=== PATIENT | male | born 1975 | race Caucasian/White ===

== ENCOUNTER 2017-02-03 23:19 | Emergency (ER) | payer BC ==
[~2017-02-03] VITALS: Ht 185.4 cm; Wt 163.3 kg
[~2017-02-03 23:19] MED LIST: CIPRO500 MG PO; PARAFON FORTE500 MG PO; PERCOCET 325 MG1 TA5 PO; PERCOCET 650 MG1 TA1 PO; PHENERGAN W/ DE30 ML PO; PREDNICOT10 MG PO; PRILOSEC20 M1 PO
[2017-02-04 00:24] LABS: BILIRUBIN NEGATIVE (NEGATIVE); BLOOD 2+ (NEGATIVE); CLARITY CLEAR (CLEAR); COLOR YELLOW (YELLOW); GLUCOSE NEGATIVE (NEGATIVE); KETONE NEGATIVE (NEGATIVE); LEUKO ESTERASE NEGATIVE (NEGATIVE); NITRITE NEGATIVE (NEGATIVE); PROTEIN NEGATIVE (NEGATIVE); UROBILINOGEN 0.2 E.U./dl (0.2-1.0)
[2017-02-04 00:25] LABS: BASO # 0.1 10*3/uL (0.0-0.1); BASO % 0.9 % (0.0-1.0); EOS # 0.3 10*3/uL (0.0-0.4); EOS % 2.3 % (1.0-4.0); HEMATOCRIT 45.5 % (42.0-52.0); HEMOGLOBIN 15.5 g/dl (14.0-18.0); IG # 0.1 10*3/uL (0.0-0.1); LYMPH # 3.8 10*3/uL (1.3-4.4); LYMPH % 31.3 % (27.0-41.0); MEAN CELL VOLUME 90.1 fl (80.0-94.0); MEAN CORPUSCULAR HGB 30.7 pg (27.0-31.0); MEAN CORPUSCULAR HGB CONC 34.1 g/dl (33.0-37.0); MEAN PLATELET VOLUME 9.6 fl (9.6-12.3); MONO # 0.8 10*3/uL (0.1-1.0); MONO % 6.7 % (3.0-9.0); NEUT # 7.1 10*3/uL (2.3-7.9); NEUT % 58.3 % (47.0-73.0); PLATELET COUNT AUTOMATED 330 10*3/uL (130-400); RED BLOOD COUNT 5.05 10*6/uL (4.50-5.90); RED CELL DISTRI WIDTH 12.2 % (0-14.5); WHITE BLOOD COUNT 12.2 10*3/uL (4.8-10.8)
[2017-02-04 00:27] LABS: BUN 12 mg/dl (7-24); CARBON DIOXIDE 29 mmol/L (21-32); CHLORIDE 103 mmol/L (98-107); EST GLOM FILT AFRICAN AMERICAN > 60 ml/min; GLUCOSE 154 mg/dL (65-99); POTASSIUM 4.2 mmol/L (3.5-5.1); SODIUM 141 mmol/L (136-145)
[2017-02-04 00:32] LABS: URINE REFLEX COMMENT YES (NO)
[2017-02-04] MEDS ORDERED: NORCO 5-325 TA1 EACH PO (02:30)
[2017-02-04] MEDS ORDERED: ZOFRAN ODT4 MG SL (02:30)
== END 2017-02-04 02:40 | disposition home or self-care (01) ==
LOC: ED 23:19
PROVIDERS: Emergency Medicine Emergency Medical Services
DX: N23 Unspecified renal colic (principal); N20.1 Calculus of ureter; Z87.442 Personal history of urinary calculi; Z79.899 Other long term (current) drug therapy

== ENCOUNTER 2018-07-03 13:13 | Inpatient (IN) | payer BC ==
[~2018-07-03] VITALS: Ht 185.4 cm; Wt 168.1 kg
--- NOTE | ~2018-07-03 | PR ---
[place], [place] PROGRESS NOTE NAME: NIEVES PAUL UNIT #: [id number] ROOM: 526 DOCTOR: MIHAI LAZCANO MD,MEGHA BIRTHDATE: [birth year] DOS: 07/06/2018 SUBJECTIVE: The patient was noted comfortable at this time, resting on the bed. Coughing which was initially reported dry and nonproductive. There were no other acute respiratory complaints. OBJECTIVE: VITAL SIGNS: Normal temperature, respiratory rate 20, heart rate 83, blood pressure 132/68, pulse oxygen saturation on room air 95% saturation. HEAD, EYES, EARS, NOSE, AND THROAT: No acute change. NECK: Supple. CARDIOVASCULAR SYSTEM: S1, S2 audible. LUNGS: Remains clear. ABDOMEN: Soft and obese. EXTREMITIES: Without acute edema. LABORATORY DATA: CBC this morning: WBC count 17.3. Remaining CBC was normal. Lactic acid 1.1. IMPRESSION: 1. Acute viral infection, bronchitis. There was no evidence of pneumonia. 2. Chronic severe obesity as well. PLAN OF TREATMENT: No changes from the pulmonary standpoint. Discharge planning per Dr. Temitope Riggins. Other supportive plan of management. The patient could be discharged from the pulmonary standpoint on antibiotic treatment for completion of the influenza infection. MEGHA HOLM MD CM:PNTRANS [id number] MEGHA LAZCANO MD 07/12/18 0957 interface
--- NOTE | ~2018-07-03 | DS ---
[place], [place] DISCHARGE SUMMARY NAME: NIEVES PAUL UNIT #: [id number] ROOM: 526 DOCTOR: SHIN GRAFF MD BIRTHDATE: [birth year] DOS: 07/06/2018 DIAGNOSES: 1. Influenza pneumonia. 2. Acute tracheobronchitis. 3. Lactic acidosis with sepsis ruled out. 4. Elevated white cell count, slowly trending down. 5. Hyperglycemia with hemoglobin A1c of 6.9. Needs treatment as an outpatient. 6. Morbid obesity with a body mass index of 50. Needs sleep study and possibly placed on CPAP. 7. Benign hypertension with concentric left ventricular hypertrophy. HOSPITAL COURSE: This patient is 42 years old comes in with complaints of cough and shortness of breath. Please refer to H and P for details. After admission, the patient was placed on IV fluids, Tamiflu, IV antibiotics. A CT of the chest was done, did not show any pneumonia. The chest x-ray initially had shown right lower lobe pneumonia. The patient's white cell count was 21,000, is slowly trending down to 17,000 this morning. His lactic acidosis is corrected. He is not having any fevers, cough and shortness of breath slowly improved. Dr. Mar was consulted. He agreed the patient is stable and can be discharged today. He does have hyperglycemia with a hemoglobin A1c of 6.9, so he is a new onset diabetic, needs to be followed up as an outpatient to start on medications. Echocardiogram was done, which showed normal LV function with mild concentric LVH. The patient is morbidly obese and would require a sleep study and possible CPAP as an outpatient. The patient is advised to stay off from work for this week and see Dr. Cabral on Thursday and get an okay to go back to work. SHIN GRAFF MD CM:DISCHARG 4 4 SHIN GRAFF MD 07/06/18922 interface
--- NOTE | ~2018-07-03 | PR ---
[place], [place] PROGRESS NOTE NAME: NIEVES PAUL UNIT #: [id number] ROOM: 526 DOCTOR: SHIN GRAFF MD BIRTHDATE: [birth year] DOS: 07/05/2018 SUBJECTIVE: The patient states that he is starting to feel a little bit better, does not have any new complaints. OBJECTIVE: VITAL SIGNS: Graphic trend shows blood pressure 152/72, pulse of 73, respirations 22, temperature 97.4. LUNGS: Diminished breath sounds, clear. More air entry noted today. HEART: Regular. ABDOMEN: Obese, soft. EXTREMITIES: Without any edema. CT of the chest did not show pneumonia, but showed coronary calcifications. Comprehensive noted to be elevated at 192 blood sugar. White cell count is still high at 18.5. ASSESSMENT AND PLAN: 1. Influenza B, on Tamiflu. 2. Elevated white cell count with lactic acidosis with sepsis pattern. Sputum and blood cultures were ordered. I do not have the results of any of those back. We will continue Levaquin IV until the white cell count normalizes. If it comes down further, the plan is to discharge him to home tomorrow. 3. Coronary calcification. Check echocardiogram. The patient continues to be on lisinopril. Also, blood sugar was elevated. We will check a hemoglobin A1c. SHIN GRAFF MD CM:PNTRANS [id number] SHIN GRAFF MD 07/05/18 1420 interface
--- NOTE | ~2018-07-03 | PR ---
[place], [place] PROGRESS NOTE NAME: NIEVES PAUL UNIT #: [id number] ROOM: 526 DOCTOR: MIHAI LAZCANO MD,MEGHA BIRTHDATE: [birth year] DOS: 07/05/2018 SUBJECTIVE: The patient noted comfortable at this time without any acute distress this morning, resting in the bed. Has not been noted any symptoms of fever or chills. Cough has been noted [id number] nonproductive. There were symptoms of wheezing reported. OBJECTIVE: VITAL SIGNS: The patient has normal temperature, respiratory rate 22, heart rate 100, blood pressure 124/64. Pulse oxygen saturation on room air was 96% saturation. HEENT: Chronic obesity. NECK: Supple and obese. CARDIOVASCULAR: S1, S2 audible. LUNGS: Clear to auscultation bilaterally. ABDOMEN: Soft, obese, and nontender. EXTREMITIES: No acute edema. LABORATORY DATA: CBC today: WBC count was 18.5, decreased from 21,000. Hemoglobin and hematocrit and remaining CBC normal. CMP normal except glucose of 132. IMPRESSION: Resolving acute bronchitis with influenza B infection for this patient at this time. The patient with chronic obesity. PLAN OF MANAGEMENT: No change in Pulmonary standpoint. Discharge planning per primary care attending. Continue in the meantime other therapy, plan of management, care plan and treatment and therapies. MEGHA HOLM MD CM:PNTRANS [id number] MEGHA LAZCANO MD 07/05/18 1228 interface
--- NOTE | ~2018-07-03 | CON ---
[place], [place] REPORT OF CONSULTATION NAME: NIEVES PAUL UNIT #: [id number] ROOM: 526 DOCTOR: MIHAI LAZCANO MDMEGHA BIRTHDATE: [birth year] DOS: 07/04/2018 PULMONARY CONSULTATION, EVALUATION, AND MANAGEMENT CONSULTATION REQUESTED BY: Temitope Riggins MD REASON FOR CONSULTATION: For assessment of possibility of pneumonia. The patient with hemoptysis. HISTORY OF PRESENT ILLNESS: The patient is a 42-year-old white male patient without any known pulmonary disease or other significant illnesses. The patient presented to the hospital as he reported expectoration of blood, might be drainage from the back of the throat. He also felt dizzy and reported symptoms of cough, which has been ongoing for the past several weeks. The patient's cough has been noted usually nonproductive. Denies symptoms of fever or chills. Denies symptoms of hemoptysis. He has been seen in the hospital in the Emergency Room with current symptom assessment on 07/03/2018 and was admitted to the hospital for further care. The patient reported symptoms of shortness of breath with exertion as well. REVIEW OF SYSTEMS: CONSTITUTIONAL: Fatigue and tiredness noted. Denies any symptoms of fever or chills. EYES: Denies any burning, redness, or tenderness. EARS, NOSE, THROAT SYMPTOMS: Denies sore throat, hoarseness, otalgia, postnasal drainage at the present time. There was no further bleeding was reported including any episodes of hemoptysis. CARDIOVASCULAR: Denies anginal pain, edema, or pain of the lower extremities. GASTROINTESTINAL: Denies dysphagia, nausea, vomiting, diarrhea, abdominal pain, hematemesis, melena, or hematochezia. SKIN: Denies abnormal lesions or rashes. CENTRAL NERVOUS SYSTEM: No dizziness, headache, diplopia, syncope or seizures. GENITOURINARY: Denies dysuria, suprapubic pain, or hematuria. Remaining systems were reviewed. They were noted all negative. PAST MEDICAL HISTORY: 1. Known with history of nephrolithiasis. The patient required intervention couple of times in the past. 2. Gastroesophageal reflux 3. Morbid obesity. 4. Chronic back pain. 5. History of essential hypertension. PAST SURGICAL HISTORY: The patient was noted with: 1. ____ x 2 in the past. 2. Cardiac catheterization. SOCIAL HISTORY: The patient is , has 3 children, lives at home. Denies ETOH, alcohol, or illicit drug use. Tobacco use was noted in the form of cigarette from a teenager, pack of cigarettes a day, discontinued about 15 years [place], [place] REPORT OF CONSULTATION NAME: NIEVES PAUL UNIT #: [id number] ROOM: 526 DOCTOR: MIHAI LAZCANO MD,MEGHA BIRTHDATE: [birth year] ago. Currently, the patient is chewing tobacco and uses about 13 cans of tobacco per week. FAMILY HISTORY: Both parents are living, father 63 with history of coronary artery disease, other medical illnesses. Mother is living, also 61 years old with a history of coronary artery disease and several other medical illnesses. MEDICATIONS: At home were listed hydrochlorothiazide with lisinopril, omeprazole, and Flexeril. DRUG ALLERGIES: No known drug allergies. PHYSICAL EXAMINATION: GENERAL: This is a 42-year-old white male, currently resting comfortably on the bed. Height recorded on admission as 6 feet 1 inch, weight of 370 pounds, BMI 48. VITAL SIGNS: For the patient which are reviewed shows a temperature normal since admission, respiratory rate range between 19-24, heart rate of 115-105. The blood pressure 136/86-129/64. Pulse oxygen saturation at rest on room air was recorded as 95%. HEENT: Severe decreased posterior pharyngeal space. Head was atraumatic. Eyes nonicterus. NECK: Supple. CARDIOVASCULAR: S1, S2 is audible. LUNGS: Noted with mild decreased breath sounds in the lungs bilaterally. There was no wheezing or crackles at the present time. ABDOMEN: Soft and nontender. Bowel sounds are present. EXTREMITIES: Noted without any acute edema, clubbing or cyanosis. MUSCULOSKELETAL: Noted without any acute deformities. Cranial nerves 2-12 are intact. LABORATORY DATA: CBC that was done yesterday, WBC count 16.8, remaining CBC was normal. The PT, PTT yesterday was noted as normal. Influenza A and B, nasal washing antigens taken in the Emergency Room, noted with influenza B positive. BMP: Glucose 126. Normal BUN and creatinine. Lactic acid 2.6, follow variably elevated. CBC of this morning, WBC count 21.7, hemoglobin and hematocrit normal, platelet count normal. BMP this morning was noted as BUN 14, creatinine was normal, glucose 130. Glucose 136. Sodium 135. The chest x-ray, two-view, which was done in the Emergency Room was reviewed with patchy area of infiltration, atelectasis in the right lower lobe. The CT scan of the chest, which was done without contrast was reviewed does not show any acute pulmonary infiltration, possibility of coronary artery disease and the moderate fatty deposition in the liver reported. IMPRESSION: 1. The patient will be going to be admitted to the hospital with acute bronchitis with acute ____ influenza B infection. There was no evidence of acute pneumonia at the present time. 2. Morbid obesity. 3. Leukocytosis was also noted at this time, etiology unclear. [place], [place] REPORT OF CONSULTATION NAME: NIEVES PAUL UNIT #: [id number] ROOM: 526 DOCTOR: MIHAI LAZCANO MD,MEGHA BIRTHDATE: [birth year] 4. The patient with acute hemoptysis, most likely pseudohemoptysis with drainage at the back of the throat. 5. Chronic dependence on ____. Currently with the chewing tobacco, previously noted with tobacco use. PLAN OF MANAGEMENT: Discontinuation of antibiotics. Continue management of the influenza B infection with antiviral treatment was already started by Dr. Temitope Riggins. Continue all other supportive therapy, plan of management. Monitor respiratory status closely for hemoptysis, which could be a pseudohemoptysis at this time, may be from the back of the throat. ENT evaluation would be advised. MEGHA HOLM MD CM:CONSTR:REPORT OF CONSULTATION 1244 07/04/18 1439 interface
--- NOTE | ~2018-07-03 | PR ---
[place], [place] PROGRESS NOTE NAME: NIEVES PAUL UNIT #: [id number] ROOM: 526 DOCTOR: SHIN GRAFF MD BIRTHDATE: [birth year] DOS: SUBJECTIVE: The patient is not having any complaints today. OBJECTIVE: VITAL SIGNS: Graphic trend shows a pressure of 133/68, pulse of 83, respirations 20, temperature 98.3. LUNGS: Clear. HEART: Regular. ABDOMEN: Obese, soft, nontender. EXTREMITIES: Without any edema. LABORATORY DATA: Hemoglobin A1c was 6.9 yesterday. Sugar has come down to 124. White cell count is down to 17.3. ASSESSMENT AND PLAN: 1. Influenza B on Tamiflu. 2. Acute tracheobronchitis with lactic acidosis, possible sepsis, which has corrected. Plan to discharge to home. 3. Morbid obesity with a body mass index of 50. Advised weight loss and possible sleep study as an outpatient. 4. Benign hypertension. Echocardiogram shows left ventricular hypertrophy. 4. Hyperglycemia with hemoglobin A1c of 6.9. Need to consider medications as an outpatient. Follow up with Dr. Cabral on Thursday. He is advised to be off from work until seen by primary care physician. SHIN GRAFF MD CM:JOAQUÍN 2 9 SHIN GRAFF MD 07/06/1829 interface
--- NOTE | ~2018-07-03 | WRIGHTHP ---
[place], [place] PATIENT HISTORY AND PHYSICAL EXAM NAME: NIEVES PAUL [facility] #: [id number] UNIT #: [id number] ROOM: 526 DOCTOR: SHIN GRAFF MD BIRTHDATE: [birth year] DOS: 07/03/2018 HISTORY OF PRESENT ILLNESS: The patient is 42-year-old. The patient is not known to me. A patient of Dr. Cabral, comes in with complaints of cough and difficulty breathing. He states he was sick about a month ago. He got some antibiotics, did not get any better. It continued to progress. He denies having any chest pains or palpitations. Finally, he decided to come into the Emergency Room where he was diagnosed with flu B and pneumonia and was admitted. The patient does not have any complaints this morning. He denies having any chest pains or palpitations. PAST MEDICAL HISTORY: Significant for: 1. Morbid obesity with a BMI of 48.8. 2. Chronic back pain. 3. Gastroesophageal reflux disease. 4. History of kidney stones. 5. History of cardiac catheterization in 2010, which showed normal coronaries. 6. Benign hypertension. MEDICATIONS: Lisinopril/hydrochlorothiazide 20/12.5 mg daily, omeprazole 40 daily, cyclobenzaprine 10 t.i.d.. SOCIAL HISTORY: Nonsmoker, does not use any alcohol. 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 PHYSICAL EXAMINATION: GENERAL: He is a rather heavy gentleman. VITAL SIGNS: Graphic trend shows blood pressure of 129/64, pulse of 107, respirations 18, temperature 98.1. LUNGS: Diminished breath sounds, very poor air entry. HEART: Regular. ABDOMEN: Obese, soft, nontender. EXTREMITIES: Without any edema. LABORATORY DATA: White cell count on admission 16.8, hemoglobin and hematocrit were normal. Strep screen negative. Protime normal. Rapid flu is positive. Comprehensive: Glucose 126, BUN 15, creatinine 1.16, sodium 141, potassium 3.6, chloride 103, bicarbonate 30. Lactic acid was 2.4. Chest x-ray shows right lower lobe infiltrate. ASSESSMENT: 1. Influenza positive. Tamiflu was started. 2. Right lower lobe pneumonia. Levaquin for Staph coverage along with Rocephin. The patient is also ordered a CT of the chest because of the continued elevation in white cell count. Consultation with Dr. Mar has also been obtained. IV fluids were added. 3. Benign hypertension, controlled. Restart his lisinopril. [place], [place] PATIENT HISTORY AND PHYSICAL EXAM NAME: NIEVES PAUL UNIT #: [id number] ROOM: 526 DOCTOR: SHIN GRAFF MD BIRTHDATE: [birth year] SHIN GRAFF MD CM:HISPHYS:PATIENT HISTORY AND PHYSICAL EXAMINATION 3 3 SHIN GRAFF MD 07/04/18923 interface
[~2018-07-03 13:13] MED LIST changes: +NORCO 5-325 TA1 EACH PO; +ZOFRAN ODT4 MG SL
[2018-07-03 13:15] VITALS: BP 140/90
[2018-07-03 13:36] LABS: BASO # 0.1 10*3/uL (0.0-0.1); BASO % 0.8 % (0.0-1.0); EOS # 0.3 10*3/uL (0.0-0.4); EOS % 1.9 % (1.0-4.0); HEMATOCRIT 48.7 % (42.0-52.0); HEMOGLOBIN 16.1 g/dl (14.0-18.0); LYMPH % 23.7 % (27.0-41.0); MEAN CELL VOLUME 91.9 fl (80.0-94.0); MEAN CORPUSCULAR HGB 30.4 pg (27.0-31.0); MEAN CORPUSCULAR HGB CONC 33.1 g/dl (33.0-37.0); MEAN PLATELET VOLUME 9.4 fl (9.6-12.3); MONO # 1.2 10*3/uL (0.1-1.0); MONO % 6.9 % (3.0-9.0); NEUT # 11.1 10*3/uL (2.3-7.9); NEUT % 66.1 % (47.0-73.0); PLATELET COUNT AUTOMATED 323 10*3/uL (130-400); RED CELL DISTRI WIDTH 12.4 % (0-14.5); WHITE BLOOD COUNT 16.8 10*3/uL (4.8-10.8)
[2018-07-03 13:47] LABS: ACT PARTIAL THROMBO TIME 22.4 SECONDS (20.8-31.5); INTERNATIONAL NORM RATIO 0.9 (2.0-3.5)
[2018-07-03 13:52] LABS: ALBUMIN 3.6 gm/dl (3.1-4.5); ALKALINE PHOSPHATASE 71 U/L (45-117); BUN 15 mg/dl (7-24); CHLORIDE 103 mmol/L (98-107); CREATININE 1.16 mg/dL (0.70-1.30); POTASSIUM 3.6 mmol/L (3.5-5.1); SGOT/AST 26 IU/L (3-35); SGPT/ALT 51 U/L (12-78); SODIUM 141 mmol/L (136-145); TOTAL PROTEIN 7.7 gm/dL (6.4-8.2)
[2018-07-03 15:27] VITALS: BP 142/91
[2018-07-03] MEDS ORDERED: OMEPRAZOLE40 MG PO (15:46)
[2018-07-03] MEDS ORDERED: ZESTORETIC 20-1 EACH PO (15:47)
[2018-07-03] MEDS ORDERED: AUGMENTIN 875875 MG PO (15:47)
[2018-07-03 16:05] VITALS: BP 134/83
[2018-07-03] MEDS ORDERED: CYCLOBENZAPRINE10 MG PO (16:20)
[2018-07-03] MEDS ORDERED: HYDR12.5C PO (16:42)
[2018-07-03 20:00] VITALS: BP 131/78
[2018-07-04] VITALS: BP 129/64
[2018-07-04 06:37] LABS: HEMATOCRIT 47.7 % (42.0-52.0); HEMOGLOBIN 15.3 g/dl (14.0-18.0); MEAN CELL VOLUME 93.5 fl (80.0-94.0); MEAN CORPUSCULAR HGB CONC 32.1 g/dl (33.0-37.0); MEAN PLATELET VOLUME 9.7 fl (9.6-12.3); PLATELET COUNT AUTOMATED 334 10*3/uL (130-400); RED CELL DISTRI WIDTH 12.3 % (0-14.5); WHITE BLOOD COUNT 21.7 10*3/uL (4.8-10.8)
[2018-07-04 07:19] LABS: PLATELET SUFFICIENCY NORMAL (NORMAL); TOTAL CELLS COUNTED 100 #CELLS
[2018-07-04 07:22] LABS: CHLORIDE 99 mmol/L (98-107); SODIUM 135 mmol/L (136-145)
[2018-07-04 07:29] LABS: BUN 14 mg/dl (7-24); CREATININE 1.06 mg/dL (0.70-1.30)
[2018-07-04 08:00] VITALS: BP 136/86
[2018-07-04 12:00] VITALS: BP 98/73
[2018-07-04 16:00] VITALS: BP 126/68
[2018-07-04 20:00] VITALS: BP 126/59
[2018-07-05] VITALS: BP 152/72
[2018-07-05 06:36] LABS: BASO # 0.1 10*3/uL (0.0-0.1); BASO % 0.5 % (0.0-1.0); EOS # 0.2 10*3/uL (0.0-0.4); EOS % 0.9 % (1.0-4.0); HEMATOCRIT 46.9 % (42.0-52.0); HEMOGLOBIN 15.2 g/dl (14.0-18.0); LYMPH # 3.1 10*3/uL (1.3-4.4); LYMPH % 16.9 % (27.0-41.0); MEAN CELL VOLUME 94.2 fl (80.0-94.0); MEAN CORPUSCULAR HGB 30.5 pg (27.0-31.0); MEAN CORPUSCULAR HGB CONC 32.4 g/dl (33.0-37.0); MEAN PLATELET VOLUME 9.5 fl (9.6-12.3); MONO # 1.2 10*3/uL (0.1-1.0); MONO % 6.5 % (3.0-9.0); NEUT # 13.7 10*3/uL (2.3-7.9); PLATELET COUNT AUTOMATED 312 10*3/uL (130-400); RED BLOOD COUNT 4.98 10*6/uL (4.50-5.90); RED CELL DISTRI WIDTH 12.8 % (0-14.5); WHITE BLOOD COUNT 18.5 10*3/uL (4.8-10.8)
[2018-07-05 07:00] LABS: ALBUMIN 3.1 gm/dl (3.1-4.5); ALKALINE PHOSPHATASE 64 U/L (45-117); BUN 14 mg/dl (7-24); CHLORIDE 105 mmol/L (98-107); CREATININE 0.91 mg/dL (0.70-1.30); POTASSIUM 4.3 mmol/L (3.5-5.1); SGOT/AST 19 IU/L (3-35); SGPT/ALT 40 U/L (12-78); SODIUM 139 mmol/L (136-145); TOTAL PROTEIN 6.7 gm/dL (6.4-8.2)
[2018-07-05 08:00] VITALS: BP 124/64
[2018-07-05 16:00] VITALS: BP 136/93
[2018-07-05 20:00] VITALS: BP 129/78
[2018-07-06] VITALS: BP 133/68
[2018-07-06 05:57] LABS: BASO # 0.1 10*3/uL (0.0-0.1); BASO % 0.7 % (0.0-1.0); EOS # 0.4 10*3/uL (0.0-0.4); HEMATOCRIT 46.7 % (42.0-52.0); HEMOGLOBIN 15.5 g/dl (14.0-18.0); LYMPH # 3.1 10*3/uL (1.3-4.4); LYMPH % 18.1 % (27.0-41.0); MEAN CELL VOLUME 92.7 fl (80.0-94.0); MEAN CORPUSCULAR HGB 30.8 pg (27.0-31.0); MEAN CORPUSCULAR HGB CONC 33.2 g/dl (33.0-37.0); MEAN PLATELET VOLUME 9.2 fl (9.6-12.3); MONO % 5.6 % (3.0-9.0); NEUT # 12.4 10*3/uL (2.3-7.9); PLATELET COUNT AUTOMATED 308 10*3/uL (130-400); RED BLOOD COUNT 5.04 10*6/uL (4.50-5.90); RED CELL DISTRI WIDTH 12.6 % (0-14.5); WHITE BLOOD COUNT 17.3 10*3/uL (4.8-10.8)
[2018-07-06 06:13] LABS: BUN 11 mg/dl (7-24); CHLORIDE 101 mmol/L (98-107); CREATININE 0.79 mg/dL (0.70-1.30); POTASSIUM 4.4 mmol/L (3.5-5.1); SODIUM 137 mmol/L (136-145)
[2018-07-06] MEDS ORDERED: TAMIFLU 75MG CA75 MG PO (08:49)
[2018-07-06] MEDS ORDERED: CIPRO500 MG PO (08:49)
[2018-07-06] MEDS ORDERED: PREDNISONE5 MG PO (08:49)
== END 2018-07-06 09:43 | disposition home or self-care (01) | DRG 202 ==
LOC: ED 13:13 → 5E 15:05 → EDHOLD 15:05 → 5E 15:29
PROVIDERS: Internal Medicine; Nurse Practitioner Family
DX: J20.8 Acute bronchitis due to other specified organisms (principal); E87.2 Acidosis; Z68.43 Body mass index [BMI] 50.0-59.9, adult; R04.2 Hemoptysis; E11.65 Type 2 diabetes mellitus with hyperglycemia; J10.1 Influenza due to other identified influenza virus with other respiratory manifestations; K21.9 Gastro-esophageal reflux disease without esophagitis; F17.220 Nicotine dependence, chewing tobacco, uncomplicated; M54.9 Dorsalgia, unspecified; G89.29 Other chronic pain; I25.10 Atherosclerotic heart disease of native coronary artery without angina pectoris; E66.01 Morbid (severe) obesity due to excess calories; I11.9 Hypertensive heart disease without heart failure; Z87.442 Personal history of urinary calculi; Z82.49 Family history of ischemic heart disease and other diseases of the circulatory system; Z80.9 Family history of malignant neoplasm, unspecified

== ENCOUNTER 2019-06-25 10:03 | Emergency (ER) | payer BC ==
[~2019-06-25] VITALS: Ht 185.4 cm; Wt 176.9 kg
[~2019-06-25 10:03] MED LIST changes: +ASPIRIN ADULT L81 M1 PO; +AUGMENTIN 875875 MG PO; +CYCLOBENZAPRINE10 MG PO; +HYDR12.5C PO; +OMEPRAZOLE40 MG PO; +PREDNISONE5 MG PO; +TAMIFLU 75MG CA75 MG PO; +ZESTORETIC 20-1 EACH PO
[2019-06-25] MEDS ORDERED: MEDROL DOSEPAK4 MG PO (10:42)
[2019-06-25] MEDS ORDERED: METHOCARBAMOL500 M1 PO (10:42)
[2019-06-25] MEDS ORDERED: NAPROSYN500 MG PO (10:42)
== END 2019-06-25 10:55 | disposition home or self-care (01) ==
LOC: ED 10:03
DX: S39.012A Strain of muscle, fascia and tendon of lower back, initial encounter (principal); K21.9 Gastro-esophageal reflux disease without esophagitis; Z79.899 Other long term (current) drug therapy; X58.XXXA Exposure to other specified factors, initial encounter; Y93.89 Activity, other specified; Y92.89 Other specified places as the place of occurrence of the external cause; Y99.8 Other external cause status

== ENCOUNTER 2020-01-16 01:31 | Emergency (ER) | payer BC ==
[~2020-01-16] VITALS: Ht 185.4 cm; Wt 176.9 kg
[~2020-01-16 01:31] MED LIST changes: +MEDROL DOSEPAK4 MG PO; +METHOCARBAMOL500 M1 PO; +NAPROSYN500 MG PO
[2020-01-16 04:56] LABS: BILIRUBIN NEGATIVE (NEGATIVE); BLOOD 1+ (NEGATIVE); CLARITY SL CLOUDY (CLEAR); COLOR YELLOW (YELLOW); GLUCOSE NEGATIVE (NEGATIVE); KETONE NEGATIVE (NEGATIVE); LEUKO ESTERASE NEGATIVE (NEGATIVE); NITRITE NEGATIVE (NEGATIVE); UROBILINOGEN 0.2 E.U./dl (0.2-1.0)
[2020-01-16 04:57] LABS: EPITHELIAL CELLS 16-20
[2020-01-16] MEDS ORDERED: MEDROL DOSEPAK4 MG PO (05:57)
== END 2020-01-16 06:22 | disposition home or self-care (01) ==
LOC: ED 01:31
PROVIDERS: Emergency Medicine
DX: M51.26 Other intervertebral disc displacement, lumbar region (principal); N20.0 Calculus of kidney; K21.9 Gastro-esophageal reflux disease without esophagitis; Z79.899 Other long term (current) drug therapy

== ENCOUNTER 2020-07-26 07:03 | Emergency (ER) | payer BC ==
[~2020-07-26] VITALS: Ht 185.4 cm; Wt 176.9 kg
[2020-07-26] MEDS ORDERED: TESSALON PERLE100 MG PO (08:55)
[2020-07-26] MEDS ORDERED: PROVENTIL HFA6.7 GM INH (08:55)
== END 2020-07-26 09:41 | disposition home or self-care (01) ==
LOC: ED 07:03
DX: U07.1 COVID-19 (principal); Z79.899 Other long term (current) drug therapy

== ENCOUNTER → 2022-11-05 | Outpatient (CLI) | payer BC ==
[~2022-11-05] MED LIST changes: +ADV 500/50 INH; +ASPIRIN ADULT L81 M2 PO; +PREDNISONE10 MG PO; +PREDNISONE20 M1 PO; +PROVENTIL HFA6.7 GM INH; +TESSALON PERLE100 MG PO
== END | disposition home or self-care (01) ==
LOC: CARD 16:01
PROVIDERS: ATTEND Nurse Practitioner Family
DX: I10 Essential (primary) hypertension (principal)

== ENCOUNTER → 2022-12-23 | Outpatient (CLI) | payer BC ==
[2022-12-23 13:12] LABS: BUN 9 mg/dl (9-23); CHLORIDE 100 mmol/L (98-107); POTASSIUM 3.2 mmol/L (3.4-5.1); URIC ACID 8.1 mg/dL (3.7-9.2)
== END | disposition home or self-care (01) ==
LOC: LAB 12:24
PROVIDERS: ATTEND Nurse Practitioner Family
DX: I10 Essential (primary) hypertension (principal); M1A.9XX0 Chronic gout, unspecified, without tophus (tophi)

== ENCOUNTER → 2024-07-19 | Outpatient (CLI) | payer BC ==
[~2024-07-19] MED LIST changes: +ALLOPURINOL300 MG PO; +ATORVASTATIN CA20 M1 PO; +FENOFIBRATE MI134 MG PO; +LISINOPRIL40 MG PO; +METOPROLOL TART50 M1 PO
[2024-07-19 12:23] LABS: BASO # 0.1 10*3/uL (0.0-0.1); BASO % 0.8 % (0.0-1.0); EOS # 0.3 10*3/uL (0.0-0.4); EOS % 2.3 % (1.0-4.0); HEMATOCRIT 47.4 % (42.0-52.0); MEAN CELL VOLUME 89.9 fl (80.0-94.0); MEAN CORPUSCULAR HGB 29.8 pg (27.0-31.0); MEAN CORPUSCULAR HGB CONC 33.1 g/dl (33.0-37.0); MEAN PLATELET VOLUME 9.1 fl (9.6-12.3); NEUT # 9.7 10*3/uL (2.3-7.9); NEUT % 67.5 % (47.0-73.0); PLATELET COUNT AUTOMATED 315 10*3/uL (130-400); RED BLOOD COUNT 5.27 10*6/uL (4.50-5.90); RED CELL DISTRI WIDTH 12.7 % (0-14.5); WHITE BLOOD COUNT 14.3 10*3/uL (4.8-10.8)
[2024-07-19 12:51] LABS: ALKALINE PHOSPHATASE 98 U/L (46-116); BUN 11 mg/dl (9-23); CHLORIDE 101 mmol/L (98-107); CHOLESTEROL 119 mg/dL (<200); LDL CHOLESTEROL 58 mg/dL (9-159); POTASSIUM 3.9 mmol/L (3.4-5.1); SGPT/ALT 35 U/L (5-49); TOTAL PROTEIN 7.3 gm/dL (6.0-8.0); TRIGLYCERIDES 152 mg/dl (<150); URIC ACID 4.7 mg/dL (3.7-9.2)
== END | disposition home or self-care (01) ==
LOC: LAB 12:03
PROVIDERS: ATTEND Nurse Practitioner Family
DX: I10 Essential (primary) hypertension (principal); E11.9 Type 2 diabetes mellitus without complications; M1A.9XX0 Chronic gout, unspecified, without tophus (tophi)

== ENCOUNTER 2024-08-28 08:51 | Inpatient (IN) | payer BC ==
[~2024-08-28] VITALS: Ht 185.4 cm; Wt 186.0 kg
[2024-08-28 09:17] VITALS: BP 142/78
[2024-08-28] MEDS ORDERED: Albuterol Sulfate 2.5 MG/3 ML VIAL NEB ONE (09:30)
[2024-08-28 09:45] LABS: BASO # 0.1 10*3/uL (0.0-0.1); BASO % 0.6 % (0.0-1.0); EOS % 0.3 % (1.0-4.0); HEMATOCRIT 45.6 % (42.0-52.0); MEAN CELL VOLUME 92.9 fl (80.0-94.0); MEAN CORPUSCULAR HGB 29.5 pg (27.0-31.0); MEAN CORPUSCULAR HGB CONC 31.8 g/dl (33.0-37.0); MEAN PLATELET VOLUME 9.4 fl (9.6-12.3); MONO # 1.3 10*3/uL (0.1-1.0); MONO % 12.3 % (3.0-9.0); NEUT # 7.9 10*3/uL (2.3-7.9); NEUT % 74.2 % (47.0-73.0); PLATELET COUNT AUTOMATED 251 10*3/uL (130-400); RED BLOOD COUNT 4.91 10*6/uL (4.50-5.90); RED CELL DISTRI WIDTH 12.9 % (0-14.5); WHITE BLOOD COUNT 10.7 10*3/uL (4.8-10.8)
[2024-08-28 10:04] LABS: BUN 12 mg/dl (9-23); CHLORIDE 97 mmol/L (98-107)
[2024-08-28] MEDS ORDERED: SODIUM CHLORIDE 0.9% 100 ML BAG IV ONE (10:10)
[2024-08-28] MEDS ORDERED: IOHEXOL 350 MG/ML 100 ML VIAL IV ONE (10:10)
[2024-08-28] MEDS ORDERED: ACETAMINOPHEN 325 MG TAB PO ONE (10:15)
[2024-08-28] MEDS ORDERED: Oseltamivir Phosphate 75 MG CAP PO ONE (11:10)
[2024-08-28] MEDS ORDERED: METOPROLOL SUCC50 M1 PO (11:13)
[2024-08-28] MEDS ORDERED: LISINOPRIL40 MG PO (11:13)
[2024-08-28] MEDS ORDERED: LIPITOR20 MG PO (11:13)
[2024-08-28] MEDS ORDERED: FENOFIBRATE130 M1 PO (11:13)
[2024-08-28] MEDS ORDERED: TRULICITY0.75 MG/0. SC (11:14)
[2024-08-28] MEDS ORDERED: GABAPENTIN400 MG PO (11:14)
[2024-08-28] MEDS ORDERED: ASPIRIN81 M1 PO (11:14)
[2024-08-28 14:23] VITALS: BP 144/80
[2024-08-28] MEDS ORDERED: BISACODYL 5 MG TAB PO PRN (14:40)
[2024-08-28] MEDS ORDERED: Acetaminophen/Hydrocodone 5 MG/325 MG TABLET PO PRN (14:40)
[2024-08-28] MEDS ORDERED: TEMAZEPAM 15 MG CAP PO PRN (14:40)
[2024-08-28] MEDS ORDERED: Magnesium Hydroxide 30 ML UDC PO PRN (14:40)
[2024-08-28] MEDS ORDERED: ACETAMINOPHEN 325 MG TAB PO PRN (14:40)
[2024-08-28] MEDS ORDERED: Ondansetron Hydrochloride 4 MG/2 ML VIAL IV PRN (14:40)
[2024-08-28] MEDS ORDERED: Albuterol Sulfate 2.5 MG/3 ML VIAL NEB SCH (15:15)
[2024-08-28] MEDS ORDERED: DEXTROSE 10 % IN WATER 250 ML IV PRN (16:15)
[2024-08-28] MEDS ORDERED: INSULIN LISPRO 1 UNIT/0.01 ML SQ SCH (16:30)
[2024-08-28 16:46] VITALS: BP 115/58
[2024-08-28 19:35] VITALS: BP 112/68
[2024-08-28] MEDS ORDERED: Oseltamivir Phosphate 75 MG CAP PO SCH (22:00)
[2024-08-28] MEDS ORDERED: GABAPENTIN 400 MG CAP PO SCH (22:00)
[2024-08-28] MEDS ORDERED: METOPROLOL SUCCINATE XR 50 MG TAB PO SCH (22:00)
[2024-08-29 00:06] VITALS: BP 136/76
[2024-08-29 00:17] VITALS: BP 135/74
[2024-08-29 06:00] LABS: BUN 12 mg/dl (9-23); CHLORIDE 97 mmol/L (98-107)
[2024-08-29] MEDS ORDERED: Pantoprazole Sodium 40 MG TAB PO SCH (06:00)
[2024-08-29] MEDS ORDERED: OMEPRAZOLE 20 MG CAP PO SCH (06:00)
[2024-08-29 06:38] LABS: BASO # 0.1 10*3/uL (0.0-0.1); BASO % 0.6 % (0.0-1.0); EOS # 0.2 10*3/uL (0.0-0.4); EOS % 1.6 % (1.0-4.0); HEMATOCRIT 45.4 % (42.0-52.0); MEAN CELL VOLUME 95.6 fl (80.0-94.0); MEAN CORPUSCULAR HGB 29.1 pg (27.0-31.0); MEAN CORPUSCULAR HGB CONC 30.4 g/dl (33.0-37.0); MEAN PLATELET VOLUME 9.8 fl (9.6-12.3); MONO # 1.5 10*3/uL (0.1-1.0); MONO % 16.2 % (3.0-9.0); NEUT # 5.9 10*3/uL (2.3-7.9); NEUT % 64.2 % (47.0-73.0); PLATELET COUNT AUTOMATED 236 10*3/uL (130-400); RED BLOOD COUNT 4.75 10*6/uL (4.50-5.90); RED CELL DISTRI WIDTH 13.2 % (0-14.5); WHITE BLOOD COUNT 9.3 10*3/uL (4.8-10.8)
[2024-08-29 07:54] LABS: ABG O2 SATURATION 87.4 % (94.0-98.0); ARTERIAL BLOOD GAS PH 7.405 (7.350-7.450)
[2024-08-29 08:00] VITALS: BP 121/80
[2024-08-29 08:12] LABS: ABG BASE EXCESS 5.1 mmol/L (-2.0-3.0); ARTERIAL BLOOD GAS PO2 51.6 mmHg (83.0-108.0)
[2024-08-29] MEDS ORDERED: ALLOPURINOL 300 MG TAB PO SCH (10:00)
[2024-08-29] MEDS ORDERED: LISINOPRIL 40 MG TAB PO SCH (10:00)
[2024-08-29] MEDS ORDERED: ATORVASTATIN CALCIUM 20 MG TAB PO SCH (10:00)
[2024-08-29] MEDS ORDERED: ASPIRIN ENTERIC COATED 81 MG TAB PO SCH (10:00)
[2024-08-29] MEDS ORDERED: Enoxaparin Sodium 40 MG/0.4 ML SYR SC SCH (10:00)
[2024-08-29 12:00] VITALS: BP 116/70
[2024-08-29] MEDS ORDERED: TAMIFLU 75MG CA75 MG PO (12:13)
== END 2024-08-29 13:47 | disposition home or self-care (01) | DRG 193 ==
LOC: ED 08:51 → EDHOLD 13:23 → 4E 13:23
PROVIDERS: Emergency Medicine; Student in an Organized Health Care Education/Training Program; ADMIT Student in an Organized Health Care Education/Training Program; ATTEND Student in an Organized Health Care Education/Training Program
DX: J10.1 Influenza due to other identified influenza virus with other respiratory manifestations (principal); J96.01 Acute respiratory failure with hypoxia; E66.2 Morbid (severe) obesity with alveolar hypoventilation; Z68.43 Body mass index [BMI] 50.0-59.9, adult; N20.0 Calculus of kidney; E11.65 Type 2 diabetes mellitus with hyperglycemia; I10 Essential (primary) hypertension; E78.49 Other hyperlipidemia; K21.9 Gastro-esophageal reflux disease without esophagitis; M10.9 Gout, unspecified; Z87.891 Personal history of nicotine dependence; Z79.82 Long term (current) use of aspirin; Z79.899 Other long term (current) drug therapy; Z82.49 Family history of ischemic heart disease and other diseases of the circulatory system

== ENCOUNTER 2025-02-02 04:56 | Emergency (ER) | payer BC ==
[~2025-02-02] VITALS: Ht 185.4 cm; Wt 181.4 kg
[~2025-02-02 04:56] MED LIST changes: +ASPIRIN81 M1 PO; +FENOFIBRATE130 M1 PO; +GABAPENTIN400 MG PO; +LIPITOR20 MG PO; +METOPROLOL SUCC50 M1 PO; +TRULICITY0.75 MG/0. SC
[2025-02-02] MEDS ORDERED: SODIUM CHLORIDE 0.9% 1,000 ML IV ONE (05:20)
[2025-02-02] MEDS ORDERED: Ondansetron Hydrochloride 4 MG/2 ML VIAL IV ONE (05:25)
[2025-02-02 05:53] LABS: BASO # 0.1 10*3/uL (0.0-0.1); BASO % 0.9 % (0.0-1.0); EOS # 0.2 10*3/uL (0.0-0.4); EOS % 2.1 % (1.0-4.0); MEAN CELL VOLUME 90.2 fl (80.0-94.0); MEAN CORPUSCULAR HGB 29.7 pg (27.0-31.0); MEAN PLATELET VOLUME 9.7 fl (9.6-12.3); MONO # 0.8 10*3/uL (0.1-1.0); MONO % 7.2 % (3.0-9.0); NEUT # 7.8 10*3/uL (2.3-7.9); NEUT % 68.0 % (47.0-73.0); NUCLEATED RED BLOOD CELL 0.0 % (0.0-0.0); NUCLEATED RED BLOOD CELL 0.0 10*3/uL (0.0-0.0); PLATELET COUNT AUTOMATED 318 10*3/uL (130-400); RED CELL DISTRI WIDTH 13.0 % (0-14.5)
[2025-02-02 06:13] LABS: BUN 13 mg/dl (9-23)
[2025-02-02] MEDS ORDERED: FLOMAX0.4 MG PO (07:59)
[2025-02-02] MEDS ORDERED: SEPTDS PO (07:59)
[2025-02-02] MEDS ORDERED: Ondansetron4 MG PO (07:59)
[2025-02-02] MEDS ORDERED: PERCOCET 5-3251 EACH PO (07:59)
[2025-02-02] MEDS ORDERED: KETOROLAC10 MG PO (07:59)
== END 2025-02-02 08:20 | disposition home or self-care (01) ==
LOC: ED 04:56
PROVIDERS: Emergency Medicine
DX: N20.0 Calculus of kidney (principal); K21.9 Gastro-esophageal reflux disease without esophagitis; F41.9 Anxiety disorder, unspecified; Z79.82 Long term (current) use of aspirin; Z79.899 Other long term (current) drug therapy; Z98.890 Other specified postprocedural states

== ENCOUNTER 2025-02-03 18:23 | Emergency (ER) | payer BC ==
[~2025-02-03] VITALS: Ht 185.4 cm; Wt 181.4 kg
[~2025-02-03 18:23] MED LIST changes: +FLOMAX0.4 MG PO; +KETOROLAC10 MG PO; +Ondansetron4 MG PO; +PERCOCET 5-3251 EACH PO; +SEPTDS PO
[2025-02-03] MEDS ORDERED: SODIUM CHLORIDE 0.9% 1,000 ML IV ONE (18:55)
[2025-02-03] MEDS ORDERED: Ondansetron Hydrochloride 4 MG/2 ML VIAL IV ONE (18:55)
[2025-02-03 19:05] LABS: BASO # 0.1 10*3/uL (0.0-0.1); BASO % 0.5 % (0.0-1.0); EOS # 0.4 10*3/uL (0.0-0.4); EOS % 2.7 % (1.0-4.0); MEAN CELL VOLUME 91.7 fl (80.0-94.0); MEAN CORPUSCULAR HGB 29.8 pg (27.0-31.0); MEAN PLATELET VOLUME 9.5 fl (9.6-12.3); MONO # 0.9 10*3/uL (0.1-1.0); MONO % 7.0 % (3.0-9.0); NEUT # 9.3 10*3/uL (2.3-7.9); NEUT % 72.7 % (47.0-73.0); NUCLEATED RED BLOOD CELL 0.0 % (0.0-0.0); NUCLEATED RED BLOOD CELL 0.0 10*3/uL (0.0-0.0); PLATELET COUNT AUTOMATED 266 10*3/uL (130-400); RED CELL DISTRI WIDTH 13.2 % (0-14.5)
[2025-02-03 19:28] LABS: BUN 17.0 mg/dl (9-23)
== END 2025-02-04 01:46 | disposition short-term general hospital (02) ==
LOC: ED 18:23
PROVIDERS: Nurse Practitioner Family
DX: N13.2 Hydronephrosis with renal and ureteral calculous obstruction (principal); N17.9 Acute kidney failure, unspecified; Z79.82 Long term (current) use of aspirin; Z79.899 Other long term (current) drug therapy; I10 Essential (primary) hypertension; E11.9 Type 2 diabetes mellitus without complications; K21.9 Gastro-esophageal reflux disease without esophagitis; Z98.890 Other specified postprocedural states

== ENCOUNTER 2025-05-20 16:12 | Inpatient (IN) | payer BC ==
[~2025-05-20] VITALS: Ht 185.4 cm; Wt 174.6 kg
[2025-05-20 16:23] VITALS: BP 113/76
[2025-05-20] MEDS ORDERED: FAMOTIDINE 20 MG in SYRINGE INFUSION 8 ML IV ONE (16:30)
[2025-05-20] MEDS ORDERED: Metoclopramide Hydrochloride 10 MG/2 ML VIAL IV ONE (16:30)
[2025-05-20] MEDS ORDERED: diphenhydrAMINE hydrochloride 50 MG/ML VIAL IV ONE (16:30)
[2025-05-20 16:49] LABS: MEAN CELL VOLUME 91.0 fl (80.0-94.0); MEAN CORPUSCULAR HGB 30.3 pg (27.0-31.0); MEAN PLATELET VOLUME 9.5 fl (9.6-12.3); NUCLEATED RED BLOOD CELL 0.0 % (0.0-0.0); NUCLEATED RED BLOOD CELL 0.0 10*3/uL (0.0-0.0); PLATELET COUNT AUTOMATED 367 10*3/uL (130-400); RED CELL DISTRI WIDTH 12.7 % (0-14.5)
[2025-05-20 16:50] LABS: MANUAL DIFF REFLEX YES
[2025-05-20 17:08] LABS: BUN 12 mg/dl (9-23)
[2025-05-20 17:10] LABS: BASOPHILS 1 % (0-1)
[2025-05-20 17:11] LABS: PLATELET SUFFICIENCY NORMAL (NORMAL)
[2025-05-20] MEDS ORDERED: SODIUM CHLORIDE 0.9% 1,000 ML IV ONE ×2 (17:20)
[2025-05-20] MEDS ORDERED: AZITHROMYCIN 250 ML IV ONE (17:35)
[2025-05-20] MEDS ORDERED: ACETAMINOPHEN 325 MG TAB PO PRN (18:25)
[2025-05-20] MEDS ORDERED: BISACODYL 10 MG SUPP R PRN (18:25)
[2025-05-20] MEDS ORDERED: BISACODYL 5 MG TAB PO PRN (18:25)
[2025-05-20] MEDS ORDERED: ACETAMINOPHEN 650 MG SUPP R PRN (18:25)
[2025-05-20] MEDS ORDERED: DEXTROSE 50% 25 GM/50 ML VIAL IV PRN (18:55)
[2025-05-20] MEDS ORDERED: SODIUM CHLORIDE 0.9% 1,000 ML IV SCH (19:50)
[2025-05-20] MEDS ORDERED: Albuterol Sulf/Ipratropium 3 ML VIAL NEB PRN (19:50)
[2025-05-20] MEDS ORDERED: MOUNJARO12.5 MG/01 SQ (20:08)
[2025-05-20 20:31] VITALS: BP 95/55
[2025-05-20 21:30] VITALS: BP 108/53
[2025-05-20] MEDS ORDERED: INSULIN LISPRO 1 UNIT/0.01 ML SQ SCH (22:00)
[2025-05-20] MEDS ORDERED: GUAIFENESIN 600 MG TAB ER PO SCH (22:00)
[2025-05-21] VITALS: BP 119/68
[2025-05-21] MEDS ORDERED: SODIUM CHLORIDE 0.9% 1,000 ML IV ONE ×2 (01:20→20:55)
[2025-05-21] MEDS ORDERED: OMEPRAZOLE 20 MG CAP PO SCH (06:00)
[2025-05-21 06:24] LABS: BASO # 0.1 10*3/uL (0.0-0.1); BASO % 0.6 % (0.0-1.0); EOS # 0.3 10*3/uL (0.0-0.4); EOS % 1.7 % (1.0-4.0); MEAN CELL VOLUME 92.9 fl (80.0-94.0); MEAN CORPUSCULAR HGB 30.4 pg (27.0-31.0); MEAN PLATELET VOLUME 9.8 fl (9.6-12.3); MONO # 1.3 10*3/uL (0.1-1.0); MONO % 8.1 % (3.0-9.0); NEUT # 10.9 10*3/uL (2.3-7.9); NEUT % 68.4 % (47.0-73.0); NUCLEATED RED BLOOD CELL 0.0 % (0.0-0.0); NUCLEATED RED BLOOD CELL 0.0 10*3/uL (0.0-0.0); PLATELET COUNT AUTOMATED 301 10*3/uL (130-400); RED CELL DISTRI WIDTH 13.1 % (0-14.5)
[2025-05-21 07:55] LABS: BUN 11 mg/dl (9-23); FREE T4 1.25 ng/dl (0.89-1.76); LDL CHOLESTEROL 42 mg/dL (9-159); SGPT/ALT 17 U/L (5-49)
[2025-05-21 08:00] VITALS: BP 127/60
[2025-05-21 08:19] LABS: VITAMIN D, 25-HYDROXY 20.9 ng/mL (30-100)
[2025-05-21] MEDS ORDERED: ATORVASTATIN CALCIUM 20 MG TAB PO SCH (10:00)
[2025-05-21] MEDS ORDERED: LISINOPRIL 40 MG TAB PO SCH (10:00)
[2025-05-21] MEDS ORDERED: FENOFIBRATE 145 MG TAB PO SCH (10:00)
[2025-05-21] MEDS ORDERED: ALLOPURINOL 300 MG TAB PO SCH (10:00)
[2025-05-21 12:00] VITALS: BP 145/82
[2025-05-21 16:00] VITALS: BP 146/77
[2025-05-21 20:00] VITALS: BP 150/78; BP 173/101
[2025-05-22] VITALS: BP 147/85
[2025-05-22 06:23] LABS: BASO # 0.1 10*3/uL (0.0-0.1); BASO % 0.7 % (0.0-1.0); EOS # 0.3 10*3/uL (0.0-0.4); EOS % 2.8 % (1.0-4.0); MEAN CELL VOLUME 92.0 fl (80.0-94.0); MEAN CORPUSCULAR HGB 30.1 pg (27.0-31.0); MEAN PLATELET VOLUME 9.8 fl (9.6-12.3); MONO # 0.9 10*3/uL (0.1-1.0); MONO % 7.7 % (3.0-9.0); NEUT # 8.2 10*3/uL (2.3-7.9); NEUT % 67.0 % (47.0-73.0); NUCLEATED RED BLOOD CELL 0.0 % (0.0-0.0); NUCLEATED RED BLOOD CELL 0.0 10*3/uL (0.0-0.0); PLATELET COUNT AUTOMATED 310 10*3/uL (130-400); RED CELL DISTRI WIDTH 12.7 % (0-14.5)
[2025-05-22 06:24] LABS: BUN 8 mg/dl (9-23)
[2025-05-22 08:00] VITALS: BP 151/89
[2025-05-22] MEDS ORDERED: Cholecalciferol 2,000 UNIT TABLET (50 MCG) PO SCH (10:00)
[2025-05-22 12:00] VITALS: BP 168/90
[2025-05-22 15:49] VITALS: BP 153/84
[2025-05-22 20:00] VITALS: BP 167/96
[2025-05-23] VITALS: BP 117/68
[2025-05-23 08:00] VITALS: BP 144/97
[2025-05-23] MEDS ORDERED: VENT7GM INH (08:23)
[2025-05-23] MEDS ORDERED: DOXYCYCLINE MO100 MG PO (08:23)
[2025-05-23] MEDS ORDERED: OMNICEF300 MG PO (08:24)
[2025-05-23] MEDS ORDERED: MUCUS RELIEF E600 MG PO (08:24)
== END 2025-05-23 10:30 | disposition home or self-care (01) | DRG 871 ==
LOC: ED 16:12 → 5E 18:08 → EDHOLD 18:08 → 5E 18:45
PROVIDERS: Emergency Medicine; Student in an Organized Health Care Education/Training Program; ADMIT Internal Medicine; ATTEND Internal Medicine
DX: A41.9 Sepsis, unspecified organism (principal); J69.0 Pneumonitis due to inhalation of food and vomit; E87.20 Acidosis, unspecified; E44.0 Moderate protein-calorie malnutrition; Z68.42 Body mass index [BMI] 45.0-49.9, adult; I10 Essential (primary) hypertension; K21.9 Gastro-esophageal reflux disease without esophagitis; R65.20 Severe sepsis without septic shock; E11.65 Type 2 diabetes mellitus with hyperglycemia; E78.2 Mixed hyperlipidemia; M1A.9XX0 Chronic gout, unspecified, without tophus (tophi); G47.33 Obstructive sleep apnea (adult) (pediatric); E55.9 Vitamin D deficiency, unspecified; E66.01 Morbid (severe) obesity due to excess calories; Z79.899 Other long term (current) drug therapy; Z79.01 Long term (current) use of anticoagulants; Z79.2 Long term (current) use of antibiotics; Z79.82 Long term (current) use of aspirin; Z87.891 Personal history of nicotine dependence; Z82.49 Family history of ischemic heart disease and other diseases of the circulatory system; Z80.8 Family history of malignant neoplasm of other organs or systems